=== PATIENT | female | born 1985 | race Caucasian/White ===

== ENCOUNTER 2016-10-23 15:24 | Emergency (ER) | payer SELFPAY ==
[2016-10-23 15:49] VITALS: BP 110/66
--- NOTE | 2016-10-23 16:09 | UC ---
Respiratory Complaint HPI - HPI Summary HPI Summary: The patient comes in today for: 1. Cough, rhinitis, headache, chest congestion, body aches, lower back pain: Onset: one month ago. Started as a runny nose a month ago and it would come and go. Most of her symptoms re-started last night. Palliative/provocative: Nothing makes her symptoms better or worse. Quality: Headache: ache, lower back pain: ache. Region: Frontal headache, and lower back. Severity: 6/10 Time: Constant. Associated symptoms: Primary care provider: None. Rhinitis: green/yellow: Upper tooth pain: None. Fevers: No temperature taken. Flu vaccine: NOne. Flu/strep exposure: Unknown. She works at "[employer]" Cough: sometimes productive; Green and yellow Smoker: Present. Chest pain: None Dyspnea: NOne * - History of Current Complaint Chief Complaint: UCRespiratory Stated Complaint: URI Time Seen by Provider: 10/23/16 15:57 Hx Obtained From: Patient Hx Last Menstrual Period: 10/09/16 ?: No - Allergies/Home Medications Allergies/Adverse Reactions: Allergies Allergy/AdvReac Type Severity Reaction Status Date / Time Cefaclor [From Ceclor] Allergy Unknown UNK Verified 09/13/15 12:12 Penicillins Allergy Unknown UNK Verified 09/13/15 12:12 Sulfamethoxazole Allergy Unknown UNK Verified 09/13/15 12:12 w/Trimethoprim [From Bactrim] PMH/Surg Hx/FS Hx/Imm Hx Previously Healthy: Yes Endocrine History Of: Denies: Diabetes, Thyroid Disease, Hyperthyroidism, Hypothyroidism, Dyslipidemia Cardiovascular History Of: Denies: Cardiac Disorders, Hypertension, Pacemaker/ICD, Myocardial Infarction , Congestive Heart Failure, Atrial Fibrillation, Deep Vein Thrombosis, Bleeding Disorders Respiratory History Of: Denies: COPD, Asthma, Bronchitis, Pneumonia, Pulmonary Embolism GI/ History Of: Denies: Gastroesophageal Reflux, Ulcer, Gastrointestinal Bleed, Gall Bladder Disease, Kidney Stones, Diverticulitis, Renal Disease, Urosepsis Neurological History Of: Denies: TIA, CVA, Dementia, Seizures, Migraine Psychological History Of: Denies: Anxiety, Depression, Bipolar Disorder, Schizophrenia, Post Traumatic Stress Disorder Cancer History Of: Denies: Lung Cancer, Colorectal Cancer, Breast Cancer, Prostate Cancer, Cervical Cancer Other History Of: Negative For: HIV, Hepatitis B, Hepatitis C, Anticoagulant Therapy - Surgical History Surgical History: Yes Surgery Procedure, Year, and Place: csection 2004. ear tubes - Family History Known Family History: Negative: Cardiac Disease, Hypertension - Social History Occupation: Employed Full-time Alcohol Use: Rare Substance Use Type: None Smoking Status (MU): Current Every Day Smoker Type: Cigarettes Amount Used/How Often: 1/2 PPD Length of Time of Smoking/Using Tobacco: 10 years Have You Smoked in the Last Year: Yes Review of Systems Constitutional: Negative Skin: Negative Eyes: Negative ENT: Nasal Discharge Respiratory: Cough Cardiovascular: Negative Gastrointestinal: Negative Genitourinary: Negative All Other Systems Reviewed And Are Negative: Yes Physical Exam Triage Information Reviewed: Yes Appearance: No Pain Distress, Well-Nourished, Ill-Appearing - She has decreased psychomotor slowing and decreased facial expressions. Vital Signs: Initial Vital Signs Temp 98.9 F 10/23/16 15:46 Pulse 104 10/23/16 15:46 Resp 16 10/23/16 15:46 BP 110/66 10/23/16 15:46 Pulse Ox 96 10/23/16 15:46 Vital Signs Reviewed: Yes Eyes: Positive: Conjunctiva Clear. Negative: Discharge ENT: Positive: Nasal congestion, Other: - She has pink and moist mucous membranes.. Negative: Pharyngeal erythema, Nasal drainage, TM bulging, TM dull , TM red, Tonsillar swelling, Tonsillar exudate Dental: Negative: Gross Decay/Caries @, Dental Fracture @ Neck: Positive: Supple, Nontender, No Lymphadenopathy. Negative: Nuchal Rigidity Respiratory: Positive: Chest non-tender, Lungs clear, No respiratory distress, No accessory muscle use. Negative: Crackles, Wheezing Cardiovascular: Positive: RRR, No Murmur Abdomen Description: Positive: Nontender, No Organomegaly, Soft. Negative: Distended, Guarding Musculoskeletal: Positive: Strength Intact, ROM Intact Neurological: Positive: Alert, Muscle Tone Normal Psychological: Positive: Age Appropriate Behavior, Consolable Skin: Negative: rashes, breakdown UC Diagnostic Evaluation - Laboratory O2 Sat by Pulse Oximetry: 96 Diagnostic Studies Comment: Rapid flu: (-) by nursing report. Respiratory Course/Dx - Course Course Of Treatment: Patient was told of the negative flu test, and that she probably has some virus as well as a sinusitis/bronchitis. - Differential Dx/Diagnosis Provider Diagnoses: Viral syndrome. Sinusitis. Bronchitis Discharge - Discharge Plan Condition: Stable Disposition: HOME Patient Education Materials: Sinusitis (ED), Acute Bronchitis (ED), Viral Syndrome (ED) Referrals: No Primary Care Phys,NOPCP [Primary Care Provider] - 1 Week (Please see your primary care provider in about three days to see how well you are doing. If you don't have a primary care provider, please contact the physician referral service. If you can't get in timely, please you may come back to see us until you can. If you get worse, please be seen sooner by us or the ER.) [facility] [place] PHYSICIAN REFERRAL [Outside] ()
[2016-10-23] MEDS ORDERED: Acetaminophen TAB* 325 MG PO ONE (16:15)
== END 2016-10-23 17:10 | disposition home or self-care (01) ==
LOC: UCEAST 15:24
DX: B34.9 Viral infection, unspecified (principal); J32.9 Chronic sinusitis, unspecified; J40 Bronchitis, not specified as acute or chronic; Z88.1 Allergy status to other antibiotic agents; Z88.0 Allergy status to penicillin; Z88.2 Allergy status to sulfonamides; F17.210 Nicotine dependence, cigarettes, uncomplicated
CPT/HCPCS: 87502; 99212; A9270-GY; G0463

== ENCOUNTER 2016-11-04 14:12 | Emergency (ER) | payer SELFPAY ==
[2016-11-04 15:21] VITALS: BP 100/60
--- NOTE | 2016-11-04 17:33 | UC ---
Throat Pain/Nasal Edwin HPI - HPI Summary HPI Summary: SEEN ONE WEEK AGO FOR SINUSITIS BRONCHITIS, GIVEN DOXYCYCLINE, ALMOST DONE WITH IT. SINUS PRESSURE AND CONGESTION CONTINUE, WELL FATIGUE AND FEVER. 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 Hx Last Menstrual Period: 3 WEEKS AGO Onset/Duration: Gradual Onset, Lasting Weeks, Still Present Severity: Moderate Pain Intensity: 0 Pain Scale Used: 0-10 Numeric Cough: Nonproductive Associated Signs & Symptoms: Positive: Sinus Discomfort, Nasal Discharge, Fever - Epiglottits Risk Factors Epiglottis Risk Factors: Negative - Allergies/Home Medications Allergies/Adverse Reactions: Allergies Allergy/AdvReac Type Severity Reaction Status Date / Time Cefaclor [From Ceclor] Allergy Unknown UNK Verified 11/04/16 15:21 Penicillins Allergy Unknown UNK Verified 11/04/16 15:21 Sulfamethoxazole Allergy Unknown UNK Verified 11/04/16 15:21 w/Trimethoprim [From Bactrim] Home Medications: Home Medications Norethindrone Acet & Eth Estra [Microgestin 1.5/30 1.5-30 mg-Mcg] 1 tab PO DAILY 11/04/16 [History Confirmed 11/04/16] PMH/Surg Hx/FS Hx/Imm Hx Previously Healthy: Yes Endocrine History Of: Denies: Diabetes, Thyroid Disease, Hyperthyroidism, Hypothyroidism, Dyslipidemia Cardiovascular History Of: Denies: Cardiac Disorders, Hypertension, Pacemaker/ICD, Myocardial Infarction , Congestive Heart Failure, Atrial Fibrillation, Deep Vein Thrombosis, Bleeding Disorders Respiratory History Of: Denies: COPD, Asthma, Bronchitis, Pneumonia, Pulmonary Embolism GI/ History Of: Denies: Gastroesophageal Reflux, Ulcer, Gastrointestinal Bleed, Gall Bladder Disease, Kidney Stones, Diverticulitis, Renal Disease, Urosepsis Neurological History Of: Denies: TIA, CVA, Dementia, Seizures, Migraine Psychological History Of: Denies: Anxiety, Depression, Bipolar Disorder, Schizophrenia, Post Traumatic Stress Disorder Cancer History Of: Denies: Lung Cancer, Colorectal Cancer, Breast Cancer, Prostate Cancer, Cervical Cancer Other History Of: Negative For: HIV, Hepatitis B, Hepatitis C, Anticoagulant Therapy - Surgical History Surgical History: Yes Surgery Procedure, Year, and Place: csection 2004. ear tubes - Family History Known Family History: Positive: Unknown - asopted Negative: Cardiac Disease, Hypertension - Social History Alcohol Use: Rare Substance Use Type: None Smoking Status (MU): Current Every Day Smoker Type: Cigarettes Amount Used/How Often: 1/4 PPD Length of Time of Smoking/Using Tobacco: 10 years Have You Smoked in the Last Year: Yes Review of Systems Constitutional: Negative Skin: Negative Eyes: Negative ENT: Ear Ache, Nasal Discharge Respiratory: Cough Cardiovascular: Negative Gastrointestinal: Negative Genitourinary: Negative Motor: Negative Neurovascular: Negative Musculoskeletal: Negative Neurological: Negative Psychological: Negative All Other Systems Reviewed And Are Negative: Yes Physical Exam Triage Information Reviewed: Yes Appearance: No Pain Distress, Well-Nourished, Ill-Appearing - MILD Vital Signs: Initial Vital Signs Temp 98.4 F 11/04/16 15:18 Pulse 82 11/04/16 15:18 Resp 16 11/04/16 15:18 BP 100/60 11/04/16 15:18 Pulse Ox 100 11/04/16 15:18 Vital Signs Reviewed: Yes Eye Exam: Normal ENT: Positive: Hearing grossly normal, Pharynx normal, TM bulging, TM dull Dental Exam: Normal Neck exam: Normal Respiratory Exam: Normal Respiratory: Positive: Chest non-tender, Lungs clear, Normal breath sounds, No respiratory distress, No accessory muscle use Cardiovascular Exam: Normal Cardiovascular: Positive: RRR, No Murmur, Pulses Normal, Brisk Capillary Refill Abdominal Exam: Normal Musculoskeletal Exam: Normal Neurological Exam: Normal Psychological Exam: Normal Skin Exam: Normal Throat Pain/Nasal Course/Dx - Differential Dx/Diagnosis Differential Diagnosis/HQI/PQRI: Pharyngitis, Sinusitis, Tonsillitis, URI Provider Diagnoses: SINUSITIS Discharge - Discharge Plan Condition: Stable Disposition: HOME Prescriptions: Azithromycin TAB* [Zithromax TAB (Z-JUANJO) 250 mg #6 tabs] 250 mg PO DAILY #6 tab Fluticasone NASAL SPRAY 50MCG* [Flonase NASAL SPRAY 50MCG*] 2 spray BOTH NARES DAILY #1 btl Patient Education Materials: Sinusitis (ED) Forms: *Work Release Referrals: [facility] [place] PHYSICIAN REFERRAL [Outside] No Primary Care Phys,NOPCP [Primary Care Provider] -
== END 2016-11-04 17:25 | disposition home or self-care (01) ==
LOC: UCEAST 14:12
DX: J32.9 Chronic sinusitis, unspecified (principal); Z88.1 Allergy status to other antibiotic agents; Z88.0 Allergy status to penicillin; Z88.2 Allergy status to sulfonamides; F17.210 Nicotine dependence, cigarettes, uncomplicated
CPT/HCPCS: 99212; G0463

== ENCOUNTER 2016-11-12 15:06 | Emergency (ER) | payer SELFPAY ==
[2016-11-12 15:46] VITALS: BP 104/56
--- NOTE | 2016-11-12 19:05 | UC ---
Cardiac HPI - HPI Summary HPI Summary: The patient comes in today for: 1. Chest pain: Onset: 3 weeks ago. Palliative/provocative: Steam helps the chest pain. Taking "huge breaths" sometimes makes it hurt more. But, she states that certain foods makes this retrosternal chest burning worse. Quality: Burning. Region: Retrosternal Severity: 3/10 Time: Comes and goes. Associated symptoms: Fevers: None. Cough production: "Sometimes" yellow--not green. Sinus pressure: Maxillary Flonase: Helps. PCP: None. The patient was seen by me on 10-23-16 for symptoms of cough, rhinitis, headache, chest congestion, body aches and lower back pain. She states that all her symptoms are still present, except the body aches. She states that she mainly comes in to get a work note to go back to work. I cannot easily find any work notes on [employer], and I can't easily find any note by Mr. Lopez to review regarding this patient. * - History of Current Complaint Chief Complaint: UCRespiratory Stated Complaint: RECHECK BRONCH,SINUSITIS,& HAND Time Seen by Provider: 11/12/16 18:57 Hx Obtained From: Patient - Allergy/Home Medications Allergies/Adverse Reactions: Allergies Allergy/AdvReac Type Severity Reaction Status Date / Time Cefaclor [From Ceclor] Allergy Unknown UNK Verified 11/12/16 15:47 Penicillins Allergy Unknown UNK Verified 11/12/16 15:47 Sulfamethoxazole Allergy Unknown UNK Verified 11/12/16 15:47 w/Trimethoprim [From Bactrim] PMH/Surg Hx/FS Hx/Imm Hx Previously Healthy: Yes Endocrine History Of: Denies: Diabetes, Thyroid Disease, Hyperthyroidism, Hypothyroidism, Dyslipidemia Cardiovascular History Of: Denies: Cardiac Disorders, Hypertension, Pacemaker/ICD, Myocardial Infarction , Congestive Heart Failure, Atrial Fibrillation, Deep Vein Thrombosis, Bleeding Disorders Respiratory History Of: Denies: COPD, Asthma, Bronchitis, Pneumonia, Pulmonary Embolism GI/ History Of: Denies: Gastroesophageal Reflux, Ulcer, Gastrointestinal Bleed, Gall Bladder Disease, Kidney Stones, Diverticulitis, Renal Disease, Urosepsis Neurological History Of: Denies: TIA, CVA, Dementia, Seizures, Migraine Psychological History Of: Denies: Anxiety, Depression, Bipolar Disorder, Schizophrenia, Post Traumatic Stress Disorder Cancer History Of: Denies: Lung Cancer, Colorectal Cancer, Breast Cancer, Prostate Cancer, Cervical Cancer Other History Of: Negative For: HIV, Hepatitis B, Hepatitis C, Anticoagulant Therapy - Surgical History Surgical History: Yes Surgery Procedure, Year, and Place: csection 2004. ear tubes - Family History Known Family History: Negative: Cardiac Disease, Hypertension - Social History Occupation: Employed Full-time Lives: With Family Alcohol Use: Rare Substance Use Type: None Smoking Status (MU): Current Every Day Smoker Type: Cigarettes Amount Used/How Often: 1/4 PPD Length of Time of Smoking/Using Tobacco: 10 years Have You Smoked in the Last Year: Yes Review of Systems Constitutional: Negative Skin: Negative Eyes: Negative ENT: Negative Respiratory: Cough Cardiovascular: Chest Pain Gastrointestinal: Negative All Other Systems Reviewed And Are Negative: Yes Physical Exam Triage Information Reviewed: Yes Appearance: Well-Appearing, No Pain Distress, Well-Nourished Vital Signs: Initial Vital Signs Temp 98.6 F 11/12/16 15:41 Pulse 78 11/12/16 15:41 Resp 18 11/12/16 15:41 BP 104/56 11/12/16 15:41 Pulse Ox 100 11/12/16 15:41 Vital Signs Reviewed: Yes Eyes: Positive: Conjunctiva Clear. Negative: Discharge ENT: Positive: Hearing grossly normal. Negative: Pharyngeal erythema, Nasal congestion, Nasal drainage, TM bulging, TM dull, TM red, Tonsillar swelling, Tonsillar exudate Dental: Negative: Gross Decay/Caries @, Dental Fracture @ Neck: Positive: Supple, Nontender, No Lymphadenopathy. Negative: Nuchal Rigidity Respiratory: Positive: Lungs clear, No respiratory distress, No accessory muscle use. Negative: Crackles, Wheezing Cardiovascular: Positive: RRR, No Murmur Abdomen Description: Positive: Nontender, No Organomegaly, Soft. Negative: Distended, Guarding Musculoskeletal: Positive: Strength Intact, ROM Intact, No Edema Neurological: Positive: Alert, Muscle Tone Normal Psychological: Positive: Age Appropriate Behavior, Consolable Skin: Negative: rashes, breakdown - Assessment/Plan Course Of Treatment: Patient was told of her diagnostic and treatment options. 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 - Clinical Impression Provider Diagnoses: Upper respiratory infection. GERD/chest pain Discharge - Discharge Plan Condition: Stable Disposition: HOME Patient Education Materials: Gastroesophageal Reflux Disease (ED), Upper Respiratory Infection (ED) Forms: *Work Release Referrals: [facility] PHYSICIAN REFERRAL [Outside] No Primary Care Phys,NOPCP [Primary Care Provider] - 1 Week (Please see your primary care provider in about three days to see how well you are doing. If you don't have a primary care provider, please contact the physician referral service. If you can't get in timely, please you may come back to see us until you can. If you get worse, please be seen sooner by us or the ER.)
== END 2016-11-12 19:43 | disposition home or self-care (01) ==
LOC: UCEAST 15:06
DX: J06.9 Acute upper respiratory infection, unspecified (principal); K21.9 Gastro-esophageal reflux disease without esophagitis; R07.9 Chest pain, unspecified; F17.210 Nicotine dependence, cigarettes, uncomplicated; Z88.0 Allergy status to penicillin; Z88.2 Allergy status to sulfonamides
CPT/HCPCS: 99212; G0463

== ENCOUNTER 2017-04-09 19:59 | Emergency (ER) | payer SELFPAY ==
[2017-04-09] MEDS ORDERED: Ondansetron INJ* 2 MG/ML VIAL IV ONE ×2 (20:05→22:11)
[2017-04-09] MEDS ORDERED: Morphine INJ* 2 MG/ML 1 ML SYRINGE IV ONE ×2 (20:05→20:42)
[2017-04-09] MEDS ORDERED: NS 0.9% 1000 ML* 1,000 ML IV ONE ×2 (20:05→22:03)
[2017-04-09 20:17] LABS: Hematocrit 44 % (35-47); Hemoglobin 14.8 g/dl (12.0-16.0); Mean Corpuscular HGB Conc 33 g/dl (31-36); Mean Corpuscular Hemoglobin 31 pg (27-31); Mean Corpuscular Volume 93 fL (80-97); Mean Platelet Volume 9 um3 (7.4-10.4); Red Blood Count 4.76 10^6/ul (4.0-5.4); Red Cell Distribution Width 13 % (10.5-15); White Blood Count 12.1 10^3/ul (3.5-10.8)
[2017-04-09 20:33] LABS: ALT 13 U/L (7-52); AST 17 U/L (13-39); Alkaline Phosphatase 55 U/L (34-104); Anion Gap 6 mmol/L (2-11); BUN/Creatinine Ratio 9.2 (8-20); Blood Urea Nitrogen 10 mg/dL (6-24); C Reactive Protein 2.94 mg/L (< 5.00); CO2 Carbon Dioxide 24 mmol/L (22-32); Calcium 9.1 mg/dL (8.6-10.3); Chloride 106 mmol/L (101-111); EGFR African American 75.8 (>60); EGFR Non-African American 58.9 (>60); Glucose 102 mg/dL (70-100); Lipase 22 U/L (11.0-82.0); Potassium 3.3 mmol/L (3.5-5.0); Sodium 136 mmol/L (133-145)
--- NOTE | 2017-04-09 20:38 | ED ---
Angela Huitron Edward, scribed for Pb Hensley MD on 04/09/17 at 2003 . Abdominal Pain/Female - HPI Summary HPI Summary: 31 y/o female BIBA c/o pain in the epigastric region for the past 24 hours. The pain started at 21:23 last night and the pain has gotten progressively worse. Associated sx: nausea. Patient thinks the pain is coming from the gallbladder. Patient is currently on her period. - History of Current Complaint Stated Complaint: ABD PAIN Hx Obtained From: Patient Hx Last Menstrual Period: now Onset/Duration: Sudden Onset, Lasting Days - 21:23 last night, Still Present Timing: Constant Severity Initially: Moderate Severity Currently: Severe Location: Epigastric Associated Signs and Symptoms: Positive: Nausea Allergies/Adverse Reactions: Allergies Allergy/AdvReac Type Severity Reaction Status Date / Time Cefaclor [From Ceclor] Allergy Unknown UNK Verified 11/12/16 15:47 Penicillins Allergy Unknown UNK Verified 11/12/16 15:47 Sulfamethoxazole Allergy Unknown UNK Verified 11/12/16 15:47 w/Trimethoprim [From Bactrim] PMH/Surg Hx/FS Hx/Imm Hx Previously Healthy: No Endocrine/Hematology History: Denies: Hx Anticoagulant Therapy, Hx Diabetes, Hx Thyroid Disease Cardiovascular History: Denies: Hx Congestive Heart Failure, Hx Deep Vein Thrombosis, Hx Hypertension , Hx Myocardial Infarction, Hx Pacemaker/ICD Respiratory History: Denies: Hx Asthma, Hx Chronic Obstructive Pulmonary Disease (COPD), Hx Lung Cancer, Hx Pneumonia, Hx Pulmonary Embolism GI History: Denies: Hx Gall Bladder Disease, Hx Gastrointestinal Bleed, Hx Ulcer, Hx Urosepsis History: Denies: Hx Kidney Stones, Hx Renal Disease Neurological History: Denies: Hx Dementia, Hx Migraine, Hx Seizures, Hx Transient Ischemic Attacks (TIA) Psychiatric History: Denies: Hx Anxiety, Hx Depression, Hx Schizophrenia, Hx Bipolar Disorder - Surgical History Surgery Procedure, Year, and Place: csection 2004. 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 Lives: With Family Alcohol Use: Rare Substance Use Type: Reports: None Smoking Status (MU): Current Every Day Smoker Type: Cigarettes Amount Used/How Often: 1/4 PPD Length of Time of Smoking/Using Tobacco: 10 years Have You Smoked in the Last Year: Yes Review of Systems Constitutional: Negative Eyes: Negative ENT: Negative Cardiovascular: Negative Respiratory: Negative Positive: Abdominal Pain, Nausea Genitourinary: Negative Musculoskeletal: Negative Skin: Negative Neurological: Negative Psychological: Normal All Other Systems Reviewed And Are Negative: Yes Physical Exam Triage Information Reviewed: Yes Vital Signs On Initial Exam: Initial Vitals Resp 22 04/09/17 20:15 Vital Signs Reviewed: Yes Appearance: Positive: Well-Appearing, Pain Distress - mild discomfort Skin: Positive: Warm Head/Face: Positive: Normal Head/Face Inspection Eyes: Positive: JESSICA ENT: Positive: Hearing grossly normal Neck: Positive: Supple Respiratory/Lung Sounds: Positive: Breath Sounds Present Cardiovascular: Positive: RRR Abdomen Description: Positive: Soft, Other: - mild diffuse upper abd tenderness. Negative: Guarding Bowel Sounds: Positive: Present Musculoskeletal: Positive: Strength/ROM Intact Neurological: Positive: Alert, Oriented to Person Place, Time Psychiatric: Positive: Affect/Mood Appropriate Diagnostics - Vital Signs Vital Signs Temp Pulse Resp BP Pulse Ox 04/09/17 20:20 98.2 F 67 22 97/67 100 04/09/17 20:15 22 - Laboratory Lab Results: Lab Results 04/09/17 04/09/17 04/09/17 Range/Units 20:10 20:10 20:10 WBC 12.1 H (3.5-10.8) 10^3/ul RBC 4.76 (4.0-5.4) 10^6/ul Hgb 14.8 (12.0-16.0) g/dl Hct 44 (35-47) % MCV 93 (80-97) fL MCH 31 (27-31) pg MCHC 33 (31-36) g/dl RDW 13 (10.5-15) % Plt Count 284 (150-450) 10^3/ul MPV 9 (7.4-10.4) um3 Neut % (Auto) 70.8 (38-83) % Lymph % (Auto) 20.5 L (25-47) % [place] % (Auto) 5.1 (1-9) % Eos % (Auto) 3.0 (0-6) % Baso % (Auto) 0.6 (0-2) % Absolute Neuts (auto) 8.5 H (1.5-7.7) 10^3/ul Absolute Lymphs (auto) 2.5 (1.0-4.8) 10^3/ul Absolute Monos (auto) 0.6 (0-0.8) 10^3/ul Absolute Eos (auto) 0.4 (0-0.6) 10^3/ul Absolute Basos (auto) 0.1 (0-0.2) 10^3/ul Absolute Nucleated RBC 0.01 10^3/ul Nucleated RBC % 0.1 Sodium 136 (133-145) mmol/L Potassium 3.3 L (3.5-5.0) mmol/L Chloride 106 (101-111) mmol/L Carbon Dioxide 24 (22-32) mmol/L Anion Gap 6 (2-11) mmol/L BUN 10 (6-24) mg/dL Creatinine 1.09 H (0.51-0.95) mg/dL Est GFR ( Amer) 75.8 (>60) Est GFR (Non-Af Amer) 58.9 (>60) BUN/Creatinine Ratio 9.2 (8-20) Glucose 102 H (70-100) mg/dL Lactic Acid 1.2 (0.5-2.0) mmol/L Calcium 9.1 (8.6-10.3) mg/dL Magnesium 2.0 (1.9-2.7) mg/dL Total Bilirubin 0.70 (0.2-1.0) mg/dL AST 17 (13-39) U/L ALT 13 (7-52) U/L Alkaline Phosphatase 55 (34-104) U/L C-Reactive Protein 2.94 (< 5.00) mg/L Total Protein 7.0 (6.4-8.9) g/dL Albumin 4.0 (3.2-5.2) g/dL Globulin 3.0 (2-4) g/dL Albumin/Globulin Ratio 1.3 (1-3) Lipase 22 (11.0-82.0) U/L Beta HCG, Quant Pending Result Diagrams: 04/09/17 20:10 04/09/17 20:10 Lab Statement: Any lab studies that have been ordered have been reviewed, and results considered in the medical decision making process. - CT ABD/PEL CT CT Interpretation: Positive (See Comments) - Possible cholecystitis due to a 2 cm gallbladder neck stone can be further evaluated with ultrasound. CT Interpretation Completed By: Radiologist - Ultrasound No standard instances Ultrasound Interpretation: No Acute Changes - Normal appearance of the liver. Small amount of sludge in the gall bladder which is otherwise unremarkable. CBD within normal limits. Normal apperance of the right kidney and pancreas. Ultrasound Interpretation Completed By: Radiologist Re-Evaluation - Re-Evaluation 1 Re-Evaluation Time: 00:57 Change: Improved - results d/w pt Abdominal Pain Fem Course/Dx - Course Course Of Treatment: 31 y/o female BIBA c/o upper region ABD for the past 24 hours. The pain started at 21:23 last night and the pain has gotten progressively worse. Associated sx: nausea. ABD/PEL CT shows Possible cholecystitis due to a 2 cm gallbladder neck stone can be further evaluated with ultrasound. ABD US negative for acute pathology. Pt was reevaluated at 00: 57. - Diagnoses Provider Diagnoses: Biliary colic Discharge - Discharge Plan Condition: Improved Disposition: HOME Patient Education Materials: Biliary Colic (ED), Diet for Stomach Ulcers and Gastritis (ED) Referrals: Vicente Gonzalez MD [Medical Doctor] - 3 Days (Please f/u in 2-3 days) The documentation as recorded by the Angela rock Edward accurately reflects the service I personally performed and the decisions made by , Pb Hensley MD.
[2017-04-09] MEDS ORDERED: Iodixanol* (CONTRAST) 320 MG/ML 100 ML SDV IV ONE (21:09)
[2017-04-09] MEDS ORDERED: Lidocaine 2% VISCOUS* 15 ML UDC PO ONE (22:03)
[2017-04-09] MEDS ORDERED: Al Hydrox/Mg Hydrox/Simet LIQ* 30 ML UDC PO ONE (22:03)
[2017-04-09] MEDS ORDERED: Ondansetron INJ* 2 MG/ML VIAL ONE (22:13)
[2017-04-09] MEDS ORDERED: HYDROmorphone* 1 MG/ML 1 ML SYR IV SLOW PU ONE (23:30)
[2017-04-10] MEDS ORDERED: oxyCODONE/Acetamin 5/325 MG* TAB PO ONE (00:56)
[2017-04-10 01:11] VITALS: BP 106/63
--- NOTE | 2017-04-10 07:47 | RAD ---
INDICATION: Abdominal pain. COMPARISON: Comparison is made with a prior CT of the abdomen and pelvis from January 16, 2008. TECHNIQUE: A CT scan of the abdomen and pelvis was performed with intravenous and oral contrast following intravenous injection of 82 ml of Visipaque 320 nonionic contrast. Contiguous axial sections were obtained from the lung bases through the symphysis pubis. Images were reconstructed in the coronal and sagittal planes. FINDINGS: The lung bases are clear. No pleural effusion is present. The liver and spleen are normal in size. There is increased density in the liver adjacent to the gallbladder possibly representing increased enhancement. The gallbladder appears distended. There is increased density within the gallbladder suspicious for gallstones. No pericholecystic fluid is seen. No intra or extrahepatic ductal distention is noted. The pancreas appears to be within normal limits. The kidneys and adrenal glands are normal in size. No hydronephrosis is seen. No significant focal renal abnormality is seen. The aorta is normal in caliber and demonstrates homogeneous contrast opacification. No significant enlarged retroperitoneal lymph nodes are seen. The stomach, small and large bowel appear nondistended. The appendix is within normal limits. There is mild sigmoid diverticulosis. There is no evidence for diverticulitis or colitis. There is a small periumbilical hernia containing fat. The uterus is anteverted and normal in size. No free intraperitoneal air or fluid is seen. No significant focal osseous abnormality is seen. IMPRESSION: DISTENDED GALLBLADDER WITH POSSIBLE GALLSTONES SUGGESTING THE POSSIBILITY OF ACUTE CHOLECYSTITIS. RECOMMEND CLINICAL CORRELATION AND A RIGHT UPPER QUADRANT ULTRASOUND FOR FURTHER EVALUATION.
--- NOTE | 2017-04-10 07:54 | RAD ---
HISTORY: Right upper quadrant pain COMPARISONS: CT dated April 09, 2017 TECHNIQUE: Multiple transverse and longitudinal ultrasound images were obtained of the right upper quadrant of the abdomen using grayscale and color Doppler imaging. FINDINGS: LIVER: The liver is normal in shape, size, contour, and echogenicity. There are no focal parenchymal masses. There is normal hepatopedal flow of the portal vein on Doppler imaging. BILIARY TREE: There is mild intrahepatic biliary dilatation. The common duct measures 0.5 cm. GALLBLADDER: There is a wall echo shadow complex within the gallbladder neck corresponding to the stone noted on CT. A positive sonographic Gomes sign is reported. PANCREAS: The head of the pancreas is unremarkable. The tail of the pancreas is not well visualized secondary to overlying bowel gas. RIGHT KIDNEY: The right kidney is normal in shape, size, contour, and echogenicity. There is no hydronephrosis or nephrolithiasis. The right kidney measures 11.2 x 3.3 x 4 cm. AORTA AND IVC: The aorta and IVC are unremarkable. FLUID: There are no pleural effusions. There is no free fluid within the hepatorenal recess. OTHER FINDINGS: None. IMPRESSION: 1. THERE IS A WALL ECHO SHADOW CONTRAST WITHIN THE GALLBLADDER NECK CORRESPOND TO THE STONE NOTED ON CT. ADDITIONALLY, THE TECHNOLOGIST REPORTS A SONOGRAPHIC GOMES SIGN. THIS IS INDETERMINATE BUT CONCERNING FOR ACUTE CHOLECYSTITIS IN THE CORRECT CLINICAL SETTING. 2. MILD INTRAHEPATIC BILIARY DILATATION. 3. THESE FINDINGS WERE DISCUSSED WITH DR. MARK IN THE EMERGENCY DEPARTMENT AT APPROXIMATELY 7:50 AM ON APRIL 10, 2017
--- NOTE | 2017-04-10 09:28 | CONSULT ---
Consult Consult: I was called by Dr. Bui in the morning. Ms. Jung had presented with epigastric pain, found to have a mild leukocytosis and normal transaminases, and had a CT that showed a stone in the neck of the gallbladder. An U/S was recommended and obtained. It was read as negative. The reading this AM was that there was a stone in the gallbladder neck and a positive sonographic pelayo 's sign consistent with acute cholecystitis. Dr. Gonzalez was consulted, we arranged to have her seen in the office today and she was started on Cipro.
== END 2017-04-10 01:12 | disposition home or self-care (01) ==
LOC: ED 19:59
DX: K80.50 Calculus of bile duct without cholangitis or cholecystitis without obstruction (principal); R10.9 Unspecified abdominal pain; R11.0 Nausea; F17.210 Nicotine dependence, cigarettes, uncomplicated
CPT/HCPCS: 36415; 74177; 76705; 80053; 83605; 83690; 83735; 84702; 85025; 86140; 96374; 96375; 99285; A9270-GY; J1170; J2270; J2405; Q9967

== ENCOUNTER 2017-04-12 11:22 | Day surgery (SDC) | payer SELFPAY ==
[~2017-04-12 11:22] MED LIST: Buffered Lidocaine 0.9% SYRIN* 5 ML/SYR SYRINGE INTRADERM ONE; Famotidine IV* 10 MG/ML 2 ML (20 mg) IV ONE
[2017-04-12 11:32] LABS: UR Preg Internal Control QC Line Present
[2017-04-12] MEDS ORDERED: Levofloxacin 750 MG IVPREMIX(* 750 MG/150 ML BAG ONE (11:32)
[2017-04-12] MEDS ORDERED: Ketorolac INJ* 30 MG/ML 1 ML VIAL ONE (11:32)
[2017-04-12] MEDS ORDERED: Famotidine IV* 10 MG/ML 2 ML (20 mg) ONE (11:32)
[2017-04-12] MEDS ORDERED: Buffered Lidocaine 0.9% SYRIN* 5 ML/SYR SYRINGE ONE (11:32)
[2017-04-12] MEDS ORDERED: Midazolam* 1 MG/ML 5 ML VIAL (5 MG) ONE (13:04)
[2017-04-12] MEDS ORDERED: Propofol* 10 MG/ML 20 ML BTL IV PUSH ONE (13:05)
[2017-04-12] MEDS ORDERED: Ondansetron INJ* 2 MG/ML VIAL ONE (13:05)
[2017-04-12] MEDS ORDERED: Lidocaine 2% PF * 5 ML VIAL ONE (13:05)
[2017-04-12] MEDS ORDERED: Succinylcholine* 20 MG/ML 10 ML VIAL ONE (13:05)
[2017-04-12] MEDS ORDERED: fentaNYL* 50 MCG/ML 2 ML VIAL (100 MCG VIAL) ONE ×2 (13:05→14:56)
[2017-04-12] MEDS ORDERED: Dexamethasone IV* 4 MG/ML 1 ML (4 MG) ONE (13:05)
[2017-04-12] MEDS ORDERED: Bupivacaine 0.25% W/EPI* 50 ML VIAL ONE (14:13)
[2017-04-12] MEDS ORDERED: Rocuronium* 10 MG/ML VIAL ONE (15:01)
[2017-04-12] MEDS ORDERED: HYDROmorphone* 1 MG/ML 1 ML SYR ONE ×2 (15:13→16:23)
[2017-04-12] MEDS ORDERED: DiMENhydriNATE IV* 50 MG/ML VIAL IV PUSH PRN (15:14)
[2017-04-12] MEDS ORDERED: oxyCODONE/Acetamin 5/325 MG* TAB PO PRN (15:14)
--- NOTE | 2017-04-12 15:41 | PN ---
Progress Note - Progress Note Date of Service: 04/12/17 Note: Brief Operative Note: Preop Dx: symptomatic cholelithiasis Postop Dx: same, plus subacute cholecystitis Procedure: laparascopic cholecystectomy Anesthesia: GET Surgeon: Tonja Asst: BINTA Foster Fluids: 1800 ml RL EBL: 30 ml Drains: none Specimen: gallbladder Findings: dictated
[2017-04-12] MEDS ORDERED: DiMENhydriNATE IV* 50 MG/ML VIAL ONE (16:00)
[2017-04-12] MEDS: HYDROmorphone* 1 MG/ML 1 ML SYR IV PRN ×2 (16:25→16:58)
[2017-04-12] MEDS ORDERED: oxyCODONE/Acetamin 5/325 MG* TAB ONE (16:54)
[2017-04-12 17:19] VITALS: BP 105/54
--- NOTE | 2017-04-13 16:21 | OP ---
CC: Dr. Evangelista OPERATIVE REPORT: DATE OF OPERATION: 04/12/17 DATE OF : 87 SURGEON: Pb Evangelista MD CHILD CARE SITTER: BINTA Demarco ANESTHESIOLOGIST: Dr. Phillips. ANESTHESIA: General anesthetic, local infiltration. PRE-OP DIAGNOSIS: [id number] cholecystitis. POST-OP DIAGNOSIS: [id number]-[id number] cholecystitis. OPERATIVE PROCEDURE: Laparoscopic cholecystectomy. DESCRIPTION OF PROCEDURE: The patient was supine on the operating room table. After adequate genera l anesthetic, compression stockings, Kyaw Hugger warmer, and intravenous antibiotics, the abdomen wa s prepped with antiseptic and draped in a sterile fashion. Local infiltrative anesthesia was admini stered. A small umbilical incision was created. Blunt port cannula was placed. Insufflation was c arried out with carbon dioxide. Additional cannulae, 12 mm subxiphoid, 5 mm in right upper quadrant and right anterior axillary line were placed with small stab wounds under direct vision. The gallb ladder was distended and edematous. The areolar tissue was taken down off the neck of the gallbladd er. The cystic duct and cystic artery were readily identified. This was well away from the common duct. The duct and the artery were doubly clipped and divided and the gallbladder was taken off the liver bed using electrocautery. There was no spillage. The gallbladder was removed through the sub xiphoid port which needed to be enlarged somewhat for that purpose. The operative field was well ir rigated with warm saline solution. Free fluid was suctioned out. Hemostasis was confirmed. The ca nnulae were removed. The muscle and the 2 larger incisions were closed with 0 Polysorb, followed by 5-0 Polysorb in all cases followed by Steri-Strips. She tolerated the procedure well, was awakened , and brought to Recovery in good condition. No complications. No drains. Pathologic specimen, ga llbladder. Sponge and instrument counts correct. Estimated blood loss 30 mL. [id number]/[facility] #: [id number]
== END 2017-04-12 17:46 | disposition home or self-care (01) ==
LOC: OR 11:22
PROVIDERS: ATTEND Surgery
DX: K80.12 Calculus of gallbladder with acute and chronic cholecystitis without obstruction (principal); F17.210 Nicotine dependence, cigarettes, uncomplicated
CPT/HCPCS: 81025; 88304; A9270-GY; J0330; J1100; J1170; J1240; J1885; J2250; J2405; J2704; J3010

== ENCOUNTER 2017-09-09 11:21 | Emergency (ER) | payer SELFPAY ==
[2017-09-09 12:17] VITALS: BP 119/55
[2017-09-09] MEDS ORDERED: Ketorolac INJ* 30 MG/ML 1 ML VIAL IM ONE (12:25)
--- NOTE | 2017-09-09 12:30 | UC ---
General HPI - HPI Summary HPI Summary: Patient presents with an unremarkable past medical history. She report sudden onset generalized fatigue or malaise, headache, with generalized body aches, chest discomfort and back pain. She reports cough, chest congestion, sore throat and ear pain. She states she felt well yesterday. Denies abdominal pain, dysuria, nausea, vomiting or diarrhea. She states she works at [employer] and people come and go all the time who have been ill. - History of Current Complaint Hx Obtained From: Patient Hx Last Menstrual Period: 08/30/17 Onset/Duration: Sudden Onset, Lasting Days Timing: Constant Onset Severity: Mild Current Severity: Severe Associated Signs & Symptoms: Positive: Back Pain, Chest Pain, Headache, Weakness <Jeannine Prieto - Last Filed: 09/09/17 13:09> <Katherine Sotelo - Last Filed: 09/09/17 14:41> - History of Current Complaint Chief Complaint: UCGeneralIllness Stated Complaint: COUGH CONGESTION BODYACHES Time Seen by Provider: 09/09/17 12:21 - Allergy/Home Medications Allergies/Adverse Reactions: Allergies Allergy/AdvReac Type Severity Reaction Status Date / Time Cefaclor [From Ceclor] Allergy Unknown UNK Verified 09/09/17 12:11 Penicillins Allergy Unknown UNK Verified 09/09/17 12:11 Sulfamethoxazole Allergy Unknown UNK Verified 09/09/17 12:11 w/Trimethoprim [From Bactrim] Amoxicillin [From Augmentin] Allergy Unknown Verified 09/09/17 12:11 Reaction Details Clavulanic Acid Allergy Unknown Verified 09/09/17 12:11 [From Augmentin] Reaction Details CILLINS Allergy Unknown Uncoded 09/09/17 12:11 Reaction Details Home Medications: Home Medications Oral Control 09/09/17 [History] PMH/Surg Hx/FS Hx/Imm Hx Previously Healthy: Yes Other History Of: Negative For: HIV, Hepatitis B, Hepatitis C, Anticoagulant Therapy - Surgical History Surgical History: Yes Surgery Procedure, Year, and Place: 2004. ear tubes as a child. choley - Family History Known Family History: Negative: Cardiac Disease, Hypertension - Social History Occupation: Employed Full-time Lives: Alone Alcohol Use: Rare Substance Use Type: None Smoking Status (MU): Current Every Day Smoker Type: Cigarettes Amount Used/How Often: 1/2 PPD, smoking for on and off for 10 years Length of Time of Smoking/Using Tobacco: 10 years Have You Smoked in the Last Year: Yes <Jeannine Prieto - Last Filed: 09/09/17 13:09> Review of Systems Constitutional: Fatigue Skin: Negative Eyes: Photophobia ENT: Sore Throat, Ear Ache, Nasal Discharge, Sinus Congestion Respiratory: Cough Cardiovascular: Negative Gastrointestinal: Negative Genitourinary: Negative Motor: Negative Neurovascular: Negative Musculoskeletal: Arthralgia, Myalgia Neurological: Headache Psychological: Negative Is Patient Immunocompromised?: No All Other Systems Reviewed And Are Negative: Yes <Jeannine Prieto - Last Filed: 09/09/17 13:09> Physical Exam Triage Information Reviewed: Yes Appearance: Ill-Appearing Vital Signs: Initial Vital Signs Temp 99.1 F 09/09/17 12:13 Pulse 94 09/09/17 12:13 Resp 16 09/09/17 12:13 BP 119/55 09/09/17 12:13 Pulse Ox 100 09/09/17 12:13 Vital Signs Reviewed: Yes Eye Exam: Normal ENT Exam: Normal Neck exam: Normal Neck: Positive: 1 Respiratory Exam: Normal Cardiovascular Exam: Normal Abdominal Exam: Normal Musculoskeletal Exam: Normal Neurological Exam: Normal Skin Exam: Normal <Jeannine Prieto - Last Filed: 09/09/17 13:09> Vital Signs: Initial Vital Signs Temp 99.1 F 09/09/17 12:13 Pulse 94 09/09/17 12:13 Resp 16 09/09/17 12:13 BP 119/55 09/09/17 12:13 Pulse Ox 100 09/09/17 12:13 <Katherine Sotelo - Last Filed: 09/09/17 14:41> Course/Dx - Course Course Of Treatment: Patient presents with an unremarkable past medical history. Presents today with sudden onset generalized discomfort, fatigue and malaise. Infulenz A/B was negative. Clincial findings were benign. VS normal and patient was afebrile. She presents with influenza like illness and I recommend advil/tylenol every 4-6 hours, increase fluids, rest and if symtpoms worsned to follow up for re-evaluation. She was taken out of work for 2 days. She verbalzied understanding and was in agreement with the discharge plan. - Differential Dx - Multi-Symptom Differential Diagnoses: Other - uri Provider Diagnoses: uri <Jeannine Prieto - Last Filed: 09/09/17 13:09> Discharge <Jeannine Prieto - Last Filed: 09/09/17 13:09> <Katherine Sotelo - Last Filed: 09/09/17 14:41> - Discharge Plan Condition: Stable Disposition: HOME Patient Education Materials: Viral Syndrome (ED) Forms: *Work Release Referrals: No Primary Care Phys,NOPCP [Primary Care Provider] - Attestation Statement User Type: Provider - I was available for consult. This patient was seen by the JEAN PAUL. The patient was not presented to, seen by, or examined by me. -Heavenly <Katherine Sotelo - Last Filed: 09/09/17 14:41>
== END 2017-09-09 13:09 | disposition home or self-care (01) ==
LOC: UCEAST 11:21
DX: J06.9 Acute upper respiratory infection, unspecified (principal); Z88.3 Allergy status to other anti-infective agents; Z88.0 Allergy status to penicillin; F17.210 Nicotine dependence, cigarettes, uncomplicated
CPT/HCPCS: 87502; 96372; 99211; G0463; J1885

== ENCOUNTER 2017-11-30 13:14 | Emergency (ER) | payer SELFPAY ==
[2017-11-30 14:24] VITALS: BP 120/76
--- NOTE | 2017-11-30 14:53 | UC ---
Abdominal Pain Female HPI - HPI Summary HPI Summary: Patient states she started with cold like symptoms and headache in her temples that radiate backward through her scalp along with diarrhea for the past 5 days. c/o stuffy nose which is not consistent, denies cough or postnasal drip. She denies fever or diarrhea, does have nausea but has been drinking fluids and yesterday the diarrhea stopped. Continues with headaches /10, denies aura, states darkness and sleep help with the headache which is pressure-like. It is not similar to the migraines she has had in the past, except when they radiate backward. She states she has been smoking more since she has not been working these days, up to half ppd. Meds: BCP's. - History of Current Complaint Chief Complaint: UCHeadache Stated Complaint: HEADACHE,BODYACHES Time Seen by Provider: 11/30/17 14:42 Hx Obtained From: Patient Hx Last Menstrual Period: 11/15/17 ?: No Onset/Duration: Sudden Onset, Lasting Days Timing: Constant Severity Initially: Moderate Severity Currently: Moderate Pain Intensity: 4 Location: Diffuse Character: Colicy Aggravating Factor(s): Food Alleviating Factor(s): Bowel Movement Associated Signs and Symptoms: Positive: Nausea Allergies/Adverse Reactions: Allergies Allergy/AdvReac Type Severity Reaction Status Date / Time MS Penicillins [Penicillins] Allergy Unknown UNK Verified 11/30/17 14:15 MS Sulfamethoxazole Allergy Unknown UNK Verified 11/30/17 14:15 w/Trimethoprim [From Bactrim] cefaclor Allergy Rash Verified 11/30/17 15:09 MS Amoxicillin Allergy Unknown Verified 11/30/17 14:15 [From Augmentin] Reaction Details MS Clavulanic Acid Allergy Unknown Verified 11/30/17 14:15 [From Augmentin] Reaction Details Penicillins Allergy Unknown Verified 11/30/17 15:10 Reaction Details CILLINS Allergy Unknown Uncoded 11/30/17 14:15 Reaction Details Home Medications: Home Medications Norethindrone AC-Eth Estradiol [Microgestin 10/06 1-20 mg-Mcg] 1 tab PO DAILY [History Confirmed 11/30/17] PMH/Surg Hx/FS Hx/Imm Hx Previously Healthy: Yes Other History Of: Negative For: HIV, Hepatitis B, Hepatitis C, Anticoagulant Therapy - Surgical History Surgical History: Yes Surgery Procedure, Year, and Place: 2004. ear tubes as a child. choley - Family History Known Family History: Negative: Cardiac Disease, Hypertension - Social History Alcohol Use: Rare Substance Use Type: None Smoking Status (MU): Current Every Day Smoker Type: Cigarettes Amount Used/How Often: 5 to 1/2 PPD Length of Time of Smoking/Using Tobacco: 10 years Have You Smoked in the Last Year: Yes Review of Systems ENT: Nasal Discharge Musculoskeletal: Myalgia Neurological: Headache All Other Systems Reviewed And Are Negative: Yes Physical Exam Triage Information Reviewed: Yes Appearance: Well-Nourished, Pain Distress Vital Signs: Initial Vital Signs Temp 99 F 11/30/17 14:17 Pulse 101 11/30/17 14:17 Resp 16 11/30/17 14:17 BP 120/76 11/30/17 14:17 Pulse Ox 99 11/30/17 14:17 Vital Signs Reviewed: Yes Eyes: Positive: Conjunctiva Clear ENT: Positive: Hearing grossly normal, Pharynx normal, TMs normal, Uvula midline , Other - temporal tenderness to palpation Dental Exam: Normal Neck: Positive: Supple, Nontender, No Lymphadenopathy Respiratory: Positive: Chest non-tender, Lungs clear, Normal breath sounds, No respiratory distress Cardiovascular: Positive: RRR, No Murmur, Pulses Normal, Brisk Capillary Refill Abdomen Description: Positive: Nontender, No Organomegaly, Soft Bowel Sounds: Positive: Present Musculoskeletal Exam: Normal Neurological: Positive: Alert, Muscle Tone Normal Skin Exam: Normal Abd Pain Female Course/Dx - Course Course Of Treatment: Patient evaluated, physical exam wnl, neurologic exam normal. Advised to continue oral hydration, avoid caffeine and tobacco, BRAT, rest - Differential Dx/Diagnosis Provider Diagnoses: Viral gastroenteritis Discharge - Discharge Plan Condition: Stable Disposition: HOME Patient Education Materials: Dehydration (ED), Gastroenteritis (ED) Forms: *Work Release Referrals: No Primary Care Phys,NOPCP [Primary Care Provider] -
== END 2017-11-30 15:23 | disposition home or self-care (01) ==
LOC: UCEAST 13:14
DX: A08.4 Viral intestinal infection, unspecified (principal); Z88.3 Allergy status to other anti-infective agents; Z88.0 Allergy status to penicillin; Z88.2 Allergy status to sulfonamides; Z88.8 Allergy status to other drugs, medicaments and biological substances
CPT/HCPCS: 99211; G0463

== ENCOUNTER 2018-02-15 07:51 | Emergency (ER) | payer SELFPAY ==
[2018-02-15 08:03] VITALS: BP 126/72
--- NOTE | 2018-02-15 08:16 | UC ---
Complaint Female HPI - HPI Summary HPI Summary: Patient presents with 5 days of urinary frequency, urgency and burning. Getting progressively worse. States she has some slight redness at her urethral meatus now. Is not concerned about STDs. Denies any vaginal discharge. No fever, nausea, low back pain. States she gets UTIs about 2 times per year. - History Of Current Complaint Chief Complaint: UCGU Stated Complaint: URINARY ISSUES Time Seen by Provider: 02/15/18 08:05 Hx Obtained From: Patient Hx Last Menstrual Period: 3 months- due at end of February Onset/Duration: Gradual Onset, Lasting Days, Still Present Timing: Constant Severity Initially: Mild Severity Currently: Moderate Pain Intensity: 2 Pain Scale Used: 0-10 Numeric Character: Burning Aggravating Factor(s): Urination Alleviating Factor(s): Nothing Associated Signs And Symptoms: Negative: Fever, Back Pain, Vaginal Bleeding/ Discharge, Vaginal Discharge, Nausea - Allergies/Home Medications Allergies/Adverse Reactions: Allergies Allergy/AdvReac Type Severity Reaction Status Date / Time amoxicillin Allergy Unknown Verified 02/15/18 08:04 Reaction Details cefaclor Allergy Rash Verified 02/15/18 08:04 clavulanic acid Allergy Unknown Verified 02/15/18 08:04 Reaction Details Penicillins Allergy Unknown Verified 02/15/18 08:04 Reaction Details sulfamethoxazole Allergy Unknown Verified 02/15/18 08:04 [From Bactrim] Reaction Details trimethoprim [From Bactrim] Allergy Unknown Verified 02/15/18 08:04 Reaction Details CILLINS Allergy Unknown Uncoded 02/15/18 08:04 Reaction Details PMH/Surg Hx/FS Hx/Imm Hx Previously Healthy: Yes Other History Of: Negative For: HIV, Hepatitis B, Hepatitis C, Anticoagulant Therapy - Surgical History Surgical History: Yes Surgery Procedure, Year, and Place: 2004. ear tubes as a child. choley - Family History Known Family History: Negative: Cardiac Disease, Hypertension - Social History Alcohol Use: Rare Substance Use Type: None Smoking Status (MU): Current Every Day Smoker Type: Cigarettes Amount Used/How Often: 5 to 1/2 PPD Length of Time of Smoking/Using Tobacco: 10 years Have You Smoked in the Last Year: Yes - Immunization History Most Recent Tetanus Shot: UNK Review of Systems Constitutional: Negative Respiratory: Negative Cardiovascular: Negative Gastrointestinal: Negative Genitourinary: Dysuria, Frequency, Urgency All Other Systems Reviewed And Are Negative: Yes Physical Exam Triage Information Reviewed: Yes Appearance: Well-Appearing, No Pain Distress, Well-Nourished Vital Signs: Initial Vital Signs Temp 98.2 F 02/15/18 07:58 Pulse 88 02/15/18 07:58 Resp 14 02/15/18 07:58 BP 126/72 02/15/18 07:58 Pulse Ox 99 02/15/18 07:58 Vital Signs Reviewed: Yes Eyes: Positive: Conjunctiva Clear ENT: Positive: Hearing grossly normal Neck: Positive: Supple Respiratory: Positive: No respiratory distress, No accessory muscle use Cardiovascular: Positive: Pulses Normal Abdomen Description: Positive: Soft, Other: - MILDLY TENDER SUPRAPUBIC. Negative: CVA Tenderness (R), CVA Tenderness (L), Distended, Guarding Musculoskeletal: Positive: No Edema Neurological: Positive: Alert Psychological: Positive: Age Appropriate Behavior Skin: Negative: rashes Diagnostics - Laboratory Diagnostic Studies Completed/Ordered: URINE DIP SP. GR. 1.030, 3+ PROTEIN, 3+ BLOOD, 3+ LEUKS Complaint Female Dx - Differential Dx/Diagnosis Provider Diagnoses: UTI Discharge - Sign-Out/Discharge Documenting (check all that apply): Discharge/Admit/Transfer - Discharge Plan Condition: Stable Disposition: HOME Prescriptions: Ciprofloxacin TAB* [Cipro 500 MG TAB*] 500 mg PO BID #14 tab Phenazopyridine TAB* [Pyridium TAB*] 200 mg PO TID #6 tab Patient Education Materials: Urinary Tract Infection in Women (ED) Forms: *Work Release [facility]: [facility] [Outside] - If Needed - Billing Disposition and Condition Condition: STABLE Disposition: HOME
== END 2018-02-15 08:27 | disposition home or self-care (01) ==
LOC: UCEAST 07:51
DX: N39.0 Urinary tract infection, site not specified (principal); Z87.440 Personal history of urinary (tract) infections; Z88.3 Allergy status to other anti-infective agents; Z88.0 Allergy status to penicillin; Z88.2 Allergy status to sulfonamides
CPT/HCPCS: 81003; 87077; 87086; 87186; 99212; G0463

== ENCOUNTER 2018-03-30 17:09 | Emergency (ER) | payer SELFPAY ==
[2018-03-30 17:34] VITALS: BP 124/82
--- NOTE | 2018-03-30 17:49 | UC ---
Dental HPI - HPI Summary HPI Summary: This patient is a 32 year old F presenting to [facility] accompanied by a friend with a chief complaint of dental pain to a left upper tooth for the past couple days. Pain is 10/10 in severity. She states she woke this morning with significant swelling to the left face. - History of Current Complaint Chief Complaint: UCDentalProblem Stated Complaint: TOOTHACHE Time Seen by Provider: 03/30/18 17:46 Hx Obtained From: Patient Hx Last Menstrual Period: 11/15/17 Onset/Duration: Lasting Days Severity: Severe Pain Intensity: 10 Pain Scale Used: 0-10 Numeric Alleviating Factor(s): Nothing - Allergies/Home Medications Allergies/Adverse Reactions: Allergies Allergy/AdvReac Type Severity Reaction Status Date / Time amoxicillin Allergy Unknown Verified 03/30/18 17:34 Reaction Details cefaclor Allergy Rash Verified 03/30/18 17:34 clavulanic acid Allergy Unknown Verified 03/30/18 17:34 Reaction Details Penicillins Allergy Unknown Verified 03/30/18 17:34 Reaction Details sulfamethoxazole Allergy Unknown Verified 03/30/18 17:34 [From Bactrim] Reaction Details trimethoprim [From Bactrim] Allergy Unknown Verified 03/30/18 17:34 Reaction Details CILLINS Allergy Unknown Uncoded 02/15/18 08:04 Reaction Details PMH/Surg Hx/FS Hx/Imm Hx Previously Healthy: Yes Other History Of: Negative For: HIV, Hepatitis B, Hepatitis C, Anticoagulant Therapy - Surgical History Surgical History: Yes Surgery Procedure, Year, and Place: 2004. ear tubes as a child. choley - Family History Known Family History: Negative: Cardiac Disease, Hypertension - Social History Alcohol Use: Rare Substance Use Type: None Smoking Status (MU): Current Every Day Smoker Type: Cigarettes Amount Used/How Often: 5 to 1/2 PPD Length of Time of Smoking/Using Tobacco: 10 years Have You Smoked in the Last Year: Yes - Immunization History Most Recent Tetanus Shot: UNK Review of Systems Constitutional: Negative ENT: Dental Pain Musculoskeletal: Edema - facial left All Other Systems Reviewed And Are Negative: Yes Physical Exam - Summary Physical Exam Summary: General: well-appearing, no pain distress Skin: warm, color reflects adequate perfusion, dry Head: normal Eyes: EOMI, JESSICA ENT: Left upper molar with severe decay and gingival swelling, left cheek swelling, uvula is midline, oropharynx is open Neck: supple, nontender Respiratory: CTA, breath sounds present Cardiovascular: RRR Abdomen: soft, nontender Bowel: present Musculoskeletal: normal, strength/ROM intact Neurological: sensory/motor intact, A&O x3 Psychological: affect/mood appropriate Triage Information Reviewed: Yes Vital Signs: Initial Vital Signs Temp 98 F 03/30/18 17:30 Pulse 97 03/30/18 17:30 Resp 18 03/30/18 17:30 BP 124/82 03/30/18 17:30 Pulse Ox 98 03/30/18 17:30 Vital Signs Reviewed: Yes Dental Complaint Course/Dx - Course Course Of Treatment: F/U DENTIST; RECHECK SOONER IF WORSE. - Differential Dx/Diagnosis Provider Diagnoses: DENTAL ABSCESS Discharge - Sign-Out/Discharge Documenting (check all that apply): Patient Departure - Discharge Plan Condition: Stable Disposition: HOME Prescriptions: Clindamycin Cap(NF) [Clindamycin Cap 300 mg Cap(NF)] 300 mg PO Q6H #40 cap HYDROcodone/ACETAMIN 5-325 MG* [Williams 5-325 TAB*] 1 tab PO Q4H PRN #20 tab MDD 6 PRN Reason: Pain Patient Education Materials: Dental Abscess (ED) Referrals: [facility] [Outside] Additional Instructions: FOLLOW UP WITH YOUR DENTIST. GET RECHECKED FOR ANY WORSENING OF YOUR CONDITION OR QUESTIONS OR CONCERNS. - Billing Disposition and Condition Condition: STABLE Disposition: Home
== END 2018-03-30 18:04 | disposition home or self-care (01) ==
LOC: UCEAST 17:09
DX: K04.7 Periapical abscess without sinus (principal); Z88.1 Allergy status to other antibiotic agents; Z88.0 Allergy status to penicillin; Z88.2 Allergy status to sulfonamides; F17.210 Nicotine dependence, cigarettes, uncomplicated
CPT/HCPCS: 99212; G0463

== ENCOUNTER 2018-04-29 12:23 | Emergency (ER) | payer SELFPAY ==
[2018-04-29 13:50] VITALS: BP 107/78
--- NOTE | 2018-04-29 14:26 | ED ---
GI/ HPI - HPI Summary HPI Summary: C/O INC URINARY FREQ AND BURNING WITH URINATION X 4 DAYS. DENIES FEVER, N/V/D, ABDO PAIN, BLOOD IN URINE, BACK PAIN, VAG SX. HX OF FREQUENT UTI. MED HX = NONE. ABDO/PEL SURGICAL HX IS C SECTION X 1, BARRY. - History of Current Complaint Chief Complaint: UCGU Stated Complaint: URINARY ISSUE Hx Obtained From: Patient Hx Last Menstrual Period: 3 months ago, pt is on B/C that gives her a menses Q 3 months Onset/Duration: Started Days Ago Timing: Constant Severity: Mild Current Severity: None Pain Intensity: 2 Pain Characteristics: Burning Associated Signs and Symptoms: Positive: Negative Aggravating Factor(s): Nothing Alleviating Factor(s): Nothing - Allergy/Home Medications Allergies/Adverse Reactions: Allergies Allergy/AdvReac Type Severity Reaction Status Date / Time amoxicillin Allergy Unknown Verified 04/29/18 13:52 Reaction Details cefaclor Allergy Rash Verified 04/29/18 13:52 clavulanic acid Allergy Unknown Verified 04/29/18 13:52 Reaction Details Penicillins Allergy Unknown Verified 04/29/18 13:52 Reaction Details sulfamethoxazole Allergy Unknown Verified 04/29/18 13:52 [From Bactrim] Reaction Details trimethoprim [From Bactrim] Allergy Unknown Verified 04/29/18 13:52 Reaction Details CILLINS Allergy Unknown Uncoded 04/29/18 13:52 Reaction Details Home Medications: Home Medications Levonorgestrel-Ethin Estradiol [Aubra] 1 tab PO DAILY 04/29/18 [History Confirmed 04/29/18] PMH/Surg Hx/FS Hx/Imm Hx Endocrine/Hematology History: Denies: Hx Anticoagulant Therapy, Hx Diabetes, Hx Thyroid Disease Cardiovascular History: Denies: Hx Congestive Heart Failure, Hx Deep Vein Thrombosis, Hx Hypertension , Hx Myocardial Infarction, Hx Pacemaker/ICD Respiratory History: Reports: Other Respiratory Problems/Disorders - URI,sinus infection and viral infection 6 months ago - healed Denies: Hx Asthma, Hx Chronic Obstructive Pulmonary Disease (COPD), Hx Lung Cancer, Hx Pneumonia, Hx Pulmonary Embolism GI History: Reports: Other GI Disorders - choleycystitis Denies: Hx Gall Bladder Disease, Hx Gastrointestinal Bleed, Hx Ulcer, Hx Urosepsis History: Reports: Other Problems/Disorders - urinary tract infection. last one 5-6months ago Denies: Hx Kidney Stones, Hx Renal Disease Musculoskeletal History: Reports: Other Musculoskeletal History - right side of back muscle damage Sensory History: Denies: Hx Cataracts, Hx Contacts or Glasses, Hx Hearing Aid Opthamlomology History: Denies: Hx Cataracts, Hx Contacts or Glasses Neurological History: Reports: Other Neuro Impairments/Disorders - Had shingles in past- none now Denies: Hx Dementia, Hx Migraine, Hx Seizures, Hx Transient Ischemic Attacks (TIA) Psychiatric History: Denies: Hx Anxiety, Hx Depression, Hx Schizophrenia, Hx Bipolar Disorder - Cancer History Hx Chemotherapy: No - Surgical History Surgery Procedure, Year, and Place: 2004. ear tubes as a child. choley Hx Anesthesia Reactions: No Infectious Disease History: No Infectious Disease History: Reports: Hx Shingles Denies: Hx Clostridium Difficile, Hx Hepatitis, Hx Human Immunodeficiency Virus (HIV), Hx Tuberculosis, Hx Known/Suspected VRE, Hx Known/Suspected VRSA, History Other Infectious Disease, Traveled Outside the [place] in Last 30 Days - Family History Known Family History: Negative: Cardiac Disease, Hypertension - Social History Alcohol Use: Rare Substance Use Type: Reports: None Smoking Status (MU): Heavy Every Day Tobacco Smoker Type: Cigarettes Amount Used/How Often: 5 to 1/2 PPD Length of Time of Smoking/Using Tobacco: since age 19 Have You Smoked in the Last Year: Yes Review of Systems Constitutional: Negative Eyes: Negative ENT: Negative Cardiovascular: Negative Respiratory: Negative Gastrointestinal: Negative Positive: burning, frequency Musculoskeletal: Negative Skin: Negative Neurological: Negative Psychological: Normal All Other Systems Reviewed And Are Negative: Yes Physical Exam Triage Information Reviewed: Yes Vital Signs On Initial Exam: Initial Vitals Temp Pulse Resp BP Pulse Ox 98.2 F 95 16 107/78 100 04/29/18 13:44 04/29/18 13:44 04/29/18 13:44 04/29/18 13:44 04/29/18 13:44 Vital Signs Reviewed: Yes Appearance: Positive: Well-Appearing Skin: Positive: Warm Head/Face: Positive: Normal Head/Face Inspection Eyes: Positive: Normal Neck: Positive: Supple Respiratory/Lung Sounds: Positive: Clear to Auscultation Cardiovascular: Positive: Normal Abdomen Description: Positive: Nontender, Soft. Negative: CVA Tenderness (R), CVA Tenderness (L) Musculoskeletal: Positive: Normal Neurological: Positive: Normal Psychiatric: Positive: Normal AVPU Assessment: Alert - [place] Coma Scale Best Eye Response: 4 - Spontaneous Best Motor Response: 6 - Obeys Commands Best Verbal Response: 5 - Oriented Coma Scale Total: 15 Diagnostics - Vital Signs Vital Signs Temp Pulse Resp BP Pulse Ox 04/29/18 13:44 98.2 F 95 16 107/78 100 - Laboratory Lab Statement: Any lab studies that have been ordered have been reviewed, and results considered in the medical decision making process. GIGU Course/Dx - Course Course Of Treatment: C/O INC URINARY FREQ AND BURNING WITH URINATION X 4 DAYS. DENIES FEVER, N/V/D, ABDO PAIN, BLOOD IN URINE, BACK PAIN, VAG SX. HX OF FREQUENT UTI. MED HX = NONE. ABDO/PEL SURGICAL HX IS C SECTION X 1, BARRY. UIT SX. RX FOR CIPRO AND AXO. PT ADVISED OF POTENTIAL FOR WEAKENING TENDONS FROM CIPRO. - Diagnoses Provider Diagnoses: UTI (urinary tract infection) Discharge - Sign-Out/Discharge Documenting (check all that apply): Patient Departure - Discharge Plan Condition: Stable Disposition: HOME Patient Education Materials: Phenazopyridine (By mouth), Urinary Tract Infection in Women (DC) Referrals: No Primary Care Phys,NOPCP [Primary Care Provider] - Additional Instructions: TAKE ANTIBIOTICS DIRECTED. CAUTION WITH SPORTS WHILE TAKING CIPRO IT MAY WEAKEN TENDONS. RETURN FOR ANY NEW OR WORSENING SYMPTOMS. - Billing Disposition and Condition Condition: STABLE Disposition: Home
== END 2018-04-29 14:40 | disposition home or self-care (01) ==
LOC: UCEAST 12:23
DX: N39.0 Urinary tract infection, site not specified (principal); Z88.1 Allergy status to other antibiotic agents; Z88.0 Allergy status to penicillin; Z88.2 Allergy status to sulfonamides; F17.210 Nicotine dependence, cigarettes, uncomplicated
CPT/HCPCS: 81003; 87077; 87086; 87186; 99212; G0463

== ENCOUNTER 2018-06-12 10:57 | Emergency (ER) | payer SELFPAY ==
[2018-06-12 12:02] VITALS: BP 111/67
--- NOTE | 2018-06-12 12:04 | UC ---
Respiratory Complaint HPI - HPI Summary HPI Summary: 32 yo female presents with productive cough. She tells me that about 1 week ago her symptoms started as a dry cough. Since that time she has developed a productive cough, sinus congestion, headache, and fatigue. She has not been taking anything OTC for her symptoms. Has felt hot/cold at times, but has not taken her temperature. She is still smoking daily. Denies sore throat, SOB, chest pain, abdominal pain, n/v. - History of Current Complaint Chief Complaint: UCRespiratory Stated Complaint: COUGH Time Seen by Provider: 06/12/18 12:03 Hx Obtained From: Patient Hx Last Menstrual Period: 2 mom ago per bcp Onset/Duration: Gradual Onset Timing: Constant Severity Initially: Mild Severity Currently: Moderate Pain Intensity: 6 Pain Scale Used: 0-10 Numeric Character: Cough: Productive - Allergies/Home Medications Allergies/Adverse Reactions: Allergies Allergy/AdvReac Type Severity Reaction Status Date / Time amoxicillin Allergy Unknown Verified 06/12/18 12:02 Reaction Details cefaclor Allergy Rash Verified 06/12/18 12:02 clavulanic acid Allergy Unknown Verified 06/12/18 12:02 Reaction Details Penicillins Allergy Unknown Verified 06/12/18 12:02 Reaction Details sulfamethoxazole Allergy Unknown Verified 06/12/18 12:02 [From Bactrim] Reaction Details trimethoprim [From Bactrim] Allergy Unknown Verified 06/12/18 12:02 Reaction Details CILLINS Allergy Unknown Uncoded 06/12/18 12:02 Reaction Details PMH/Surg Hx/FS Hx/Imm Hx - Additional Past Medical History Additional PMH: None Other History Of: Negative For: HIV, Hepatitis B, Hepatitis C, Anticoagulant Therapy - Surgical History Surgical History: Yes Surgery Procedure, Year, and Place: 2004. ear tubes as a child. choley - Family History Known Family History: Negative: Cardiac Disease, Hypertension - Social History Occupation: Unemployed Lives: With Family Alcohol Use: Rare Substance Use Type: None Smoking Status (MU): Light Every Day Tobacco Smoker Type: Cigarettes Amount Used/How Often: 5 to 1/2 PPD Length of Time of Smoking/Using Tobacco: since age 19 Have You Smoked in the Last Year: Yes - Immunization History Most Recent Tetanus Shot: UNK Review of Systems Constitutional: Fatigue Skin: Negative Eyes: Negative ENT: Sinus Congestion Respiratory: Cough Cardiovascular: Negative Gastrointestinal: Negative Neurovascular: Negative Neurological: Negative Psychological: Negative All Other Systems Reviewed And Are Negative: Yes Physical Exam - Summary Physical Exam Summary: GENERAL: NAD. WDWN. Mildly ill appearing SKIN: No rashes, sores, lesions, or open wounds. HEENT: Head: AT/NC Eyes: Conjunctiva clear without inflammation or discharge. Ears: Hearing grossly normal. TMs intact, no bulging, erythema, or edema. Nose: Nasal mucosa pink and moist. NTTP maxillary and frontal sinus. Throat: Posterior oropharynx without exudates, erythema, or tonsillar enlargement. Uvula midline. NECK: Supple. Nontender. No lymphadenopathy. CHEST: Mild wheezing throughout. No r/r. No accessory muscle use. Breathing comfortably and in no distress. CV: RRR. Without m/r/g. Pulses intact. Cap refill <2seconds NEURO: Alert. PSYCH: Age appropriate behavior. Triage Information Reviewed: Yes Vital Signs: Initial Vital Signs Temp 96.8 F 06/12/18 11:57 Pulse 107 06/12/18 11:57 Resp 18 06/12/18 11:57 BP 111/67 06/12/18 11:57 Pulse Ox 98 06/12/18 11:57 Vital Signs Reviewed: Yes Diagnostic Evaluation - Laboratory O2 Sat by Pulse Oximetry: 98 Respiratory Course/Dx - Course Course Of Treatment: Bronchitis - Differential Dx/Diagnosis Provider Diagnoses: Bronchitis Discharge - Sign-Out/Discharge Documenting (check all that apply): Patient Departure All imaging exams completed and their final reports reviewed: No Studies - Discharge Plan Condition: Stable Disposition: HOME Prescriptions: DOXYcycline CAP(*) [DOXYcycline 100MG CAP(*)] 100 mg PO BID #20 cap Patient Education Materials: Acute Bronchitis (ED) Referrals: No Primary Care Phys,NOPCP [Primary Care Provider] - Additional Instructions: If you develop a fever, shortness of breath, chest pain, new or worsening symptoms - please call your PCP or go to the ED. - Billing Disposition and Condition Condition: STABLE Disposition: Home
== END 2018-06-12 12:20 | disposition home or self-care (01) ==
LOC: UCEAST 10:57
DX: J40 Bronchitis, not specified as acute or chronic (principal); Z88.1 Allergy status to other antibiotic agents; Z88.0 Allergy status to penicillin; Z88.2 Allergy status to sulfonamides; F17.210 Nicotine dependence, cigarettes, uncomplicated
CPT/HCPCS: 99212; G0463

== ENCOUNTER 2019-04-15 08:39 | Emergency (ER) | payer SELFPAY ==
[2019-04-15 08:52] VITALS: BP 115/68
--- NOTE | 2019-04-15 09:15 | UC ---
Dental HPI - HPI Summary HPI Summary: Pt presents to with left upper jaw dental pain. Pt states has a history of cavities, broken tooth. Pt states doesn't have money to go to dentist now - states has had infection before, responsive to clindamycin. Pt took APAP without improvement last night - last dose 5am. No fever, chills. + pain radiates to left ear. No difficulty swallowing. No intraoral edema. Pts medications reviewed this visit - History of Current Complaint Chief Complaint: UCDentalProblem Stated Complaint: TOOTH PAIN Time Seen by Provider: 04/15/19 08:54 Hx Obtained From: Patient Hx Last Menstrual Period: 03/15/19 Severity: Severe Pain Intensity: 10 Pain Scale Used: 0-10 Numeric - Allergies/Home Medications Allergies/Adverse Reactions: Allergies Allergy/AdvReac Type Severity Reaction Status Date / Time amoxicillin Allergy Unknown Verified 06/12/18 12:02 Reaction Details cefaclor Allergy Rash Verified 06/12/18 12:02 clavulanic acid Allergy Unknown Verified 06/12/18 12:02 Reaction Details Penicillins Allergy Unknown Verified 06/12/18 12:02 Reaction Details sulfamethoxazole Allergy Unknown Verified 06/12/18 12:02 [From Bactrim] Reaction Details trimethoprim [From Bactrim] Allergy Unknown Verified 06/12/18 12:02 Reaction Details CILLINS Allergy Unknown Uncoded 06/12/18 12:02 Reaction Details PMH/Surg Hx/FS Hx/Imm Hx Previously Healthy: Yes Other History Of: Negative For: HIV, Hepatitis B, Hepatitis C, Anticoagulant Therapy - Surgical History Surgical History: Yes Surgery Procedure, Year, and Place: 2004. ear tubes as a child. choley - Family History Known Family History: Positive: Non-Contributory Negative: Cardiac Disease, Hypertension - Social History Occupation: Employed Full-time Lives: With Family Alcohol Use: Rare Substance Use Type: None Smoking Status (MU): Light Every Day Tobacco Smoker Type: Cigarettes Amount Used/How Often: 5 to 1/2 PPD Length of Time of Smoking/Using Tobacco: since age 19 Have You Smoked in the Last Year: Yes - Immunization History Most Recent Tetanus Shot: UNK Review of Systems All Other Systems Reviewed And Are Negative: Yes Constitutional: Positive: Negative Skin: Positive: Negative ENT: Positive: Dental Pain Respiratory: Positive: Negative Physical Exam - Summary Physical Exam Summary: Vital Signs Reviewed: Yes A+Ox3, mild discomfort - holding left cheek Eyes: Conjunctiva Clear, JESSICA. EOM intact and full ENT: Hearing grossly normal TM x 2 clear, mmoist, uvula midline, no exudate, no erythema dental: Pt with multiple dental caries #13-15 with larger cavities, +TTP # 13 broken at gumline No fluctuance, drainage + TTP Neck: Positive: Supple Respiratory: Positive: No respiratory distress, No accessory muscle use + CTA throughout no w/r Musculoskeletal Exam: [place] x 4 without difficulty Strength Intact, ROM Intact Neurological: Positive: Alert, + sensation throughout Psychological: Positive: Normal Response To Family Skin: Positive: no rash, no ecchymosis Triage Information Reviewed: Yes Vital Signs: Initial Vital Signs Temp 97.9 F 04/15/19 08:48 Pulse 65 04/15/19 08:48 Resp 16 04/15/19 08:48 BP 115/68 04/15/19 08:48 Pulse Ox 100 04/15/19 08:48 Dental Complaint Course/Dx - Course Course Of Treatment: pt presents with progressive dental pain, upper left teeth. pt with poor dentition - unable to pay dentist today vss pt with ttp #13-15 #13 broken at gumline + TTP no fluctuance Will Rx clinamycin, motrin/apap, lidocaine dental list urgent Rx strict return precautions - Differential Dx/Diagnosis Provider Diagnosis: Pain, dental Discharge - Sign-Out/Discharge Documenting (check all that apply): Patient Departure All imaging exams completed and their final reports reviewed: No Studies - Discharge Plan Condition: Stable Disposition: HOME Prescriptions: Acetaminophen TAB* [Tylenol TAB*] 650 mg PO Q6H PRN #30 tab PRN Reason: Pain Clindamycin HCl 300 mg PO TID #30 capsule Lidocaine 2% VISCOUS* 10 ml TOPICAL Q4HR PRN #1 btl PRN Reason: dental pain Patient Education Materials: Toothache (ED) Forms: *Work Release Referrals: No Primary Care Phys,NOPCP [Primary Care Provider] - Additional Instructions: - Okay to alternate ibuprofen (Advil, Motrin) 600mg and Tylenol every 3 hours for pain. Take with food. Do NOT take for more than 4-5 days -Swish and spit with warm salt water 3-4 times a day -Take anitbiotics as prescribed until gone - okay to apply the medication directly to your tooth as prescribed - do not use more frequently than prescribed -Contact a clinic or go to the walk in clinic from the list provided to you today. If you develop swelling inside your mouth, difficulty with chewing or any other concerns it is recommended you go to the emergency department for further management - Billing Disposition and Condition Condition: STABLE Disposition: Home
== END 2019-04-15 09:19 | disposition home or self-care (01) ==
LOC: UCEAST 08:39
DX: K08.89 Other specified disorders of teeth and supporting structures (principal); F17.210 Nicotine dependence, cigarettes, uncomplicated; Z88.0 Allergy status to penicillin; Z88.2 Allergy status to sulfonamides

== ENCOUNTER 2019-04-23 18:43 | Emergency (ER) | payer SELFPAY ==
[2019-04-23 18:58] VITALS: BP 122/58
[2019-04-23] MEDS ORDERED: HYDROcodone/ACETAMIN 5-325 MG* 1 TAB PO ONE (21:26)
[2019-04-23] MEDS ORDERED: metroNIDAZOLE * 500 MG TABLET PO ONE (21:26)
--- NOTE | 2019-04-23 21:40 | UC ---
Dental HPI - HPI Summary HPI Summary: 33 yo female with left TMJ tenderness and dental abscess Hit in jaw with ball about a month ago hurts to open mouth left TMJ - History of Current Complaint Chief Complaint: UCDentalProblem Stated Complaint: DENTAL PAIN Time Seen by Provider: 04/23/19 20:19 Hx Obtained From: Patient Hx Last Menstrual Period: 03/16/19 Onset/Duration: Sudden Onset, Lasting Days Severity: Severe Pain Intensity: 10 Pain Scale Used: 0-10 Numeric Aggravating Factor(s): Chewing Alleviating Factor(s): Nothing Related History: Previous Dental Care on Same Tooth Dental: 1 - rotted to gum line 2 - abscess - Allergies/Home Medications Allergies/Adverse Reactions: Allergies Allergy/AdvReac Type Severity Reaction Status Date / Time amoxicillin Allergy Unknown Verified 04/23/19 18:58 Reaction Details cefaclor Allergy Rash Verified 04/23/19 18:58 clavulanic acid Allergy Unknown Verified 04/23/19 18:58 Reaction Details Penicillins Allergy Unknown Verified 04/23/19 18:58 Reaction Details sulfamethoxazole Allergy Unknown Verified 04/23/19 18:58 [From Bactrim] Reaction Details trimethoprim [From Bactrim] Allergy Unknown Verified 04/23/19 18:58 Reaction Details CILLINS Allergy Unknown Uncoded 04/23/19 18:58 Reaction Details Home Medications: Home Medications Acetaminophen TAB* [Tylenol TAB*] 1,500 mg PO Q6H PRN 04/23/19 [History] PMH/Surg Hx/FS Hx/Imm Hx Previously Healthy: Yes Other History Of: Negative For: HIV, Hepatitis B, Hepatitis C, Anticoagulant Therapy - Surgical History Surgical History: Yes Surgery Procedure, Year, and Place: 2004. ear tubes as a child. choley - Family History Known Family History: Positive: Non-Contributory Negative: Cardiac Disease, Hypertension - Social History Alcohol Use: Rare Substance Use Type: None Smoking Status (MU): Light Every Day Tobacco Smoker Type: Cigarettes Amount Used/How Often: 5 to 1/2 PPD Length of Time of Smoking/Using Tobacco: since age 19 Have You Smoked in the Last Year: Yes - Immunization History Most Recent Tetanus Shot: UNK Review of Systems All Other Systems Reviewed And Are Negative: Yes Constitutional: Positive: Negative Skin: Positive: Negative Eyes: Positive: Negative ENT: Positive: Dental Pain Respiratory: Positive: Negative Cardiovascular: Positive: Negative Gastrointestinal: Positive: Negative Genitourinary: Positive: Negative Motor: Positive: Negative Neurovascular: Positive: Negative Musculoskeletal: Positive: Arthralgia - left TMJ Neurological: Positive: Negative Psychological: Positive: Negative Physical Exam Triage Information Reviewed: Yes Appearance: Well-Nourished, Pain Distress Vital Signs: Initial Vital Signs Temp 97 F 04/23/19 18:52 Pulse 98 04/23/19 18:52 Resp 16 04/23/19 18:52 BP 122/58 04/23/19 18:52 Pulse Ox 100 04/23/19 18:52 Vital Signs Reviewed: Yes Eyes: Positive: Conjunctiva Clear ENT: Positive: Hearing grossly normal. Negative: Pharyngeal erythema, Nasal congestion, Nasal drainage, Trismus, Muffled voice, Dental tenderness Dental Exam: Other - abysmal dentition Dental: Positive: Other: - see image Neck: Positive: Supple, Nontender, No Lymphadenopathy Respiratory: Positive: Lungs clear, Normal breath sounds, No respiratory distress Cardiovascular: Positive: RRR Musculoskeletal: Positive: ROM Intact, No Edema Neurological: Positive: Alert Psychological Exam: Normal Skin Exam: Normal Images Head: 1 - tender 2 - slight tenderness Diagnostics - Radiology No standard instances Radiology Interpretation Completed By: ED Physician Summary of Radiographic Findings: no fx noted Dental Complaint Course/Dx - Differential Dx/Diagnosis Provider Diagnosis: Dental abscess, TMJ tenderness, left Discharge - Sign-Out/Discharge Documenting (check all that apply): Patient Departure All imaging exams completed and their final reports reviewed: No - Discharge Plan Condition: Stable Disposition: HOME Patient Education Materials: Dental Abscess (ED), Temporomandibular Disorder ( ED) Additional Instructions: ice right TMJ 4x day naproxen 500mg 1 twice daily add flagyl 500mg 4x day soft no chew diet you need to see a dentist first available appt to ER if not improved in 2 days norco 5 dispense 1one every 4 hours as needed for pain Opioid-containing medications can cause drowsiness and sedation. You t should not drive or operate machinery or similar activities while taking this medication. Opioids can also cause a positive drug screen, and can be habit- forming. You should follow the instructions exactly and not take any extra medication. Opioid medications should be stored in a secure manner to avoid diversion or theft. You should not drink alcohol while taking these medications - Billing Disposition and Condition Condition: STABLE Disposition: Home
--- NOTE | 2019-04-24 07:38 | UC ---
- Progress Note Progress Note: Chart reviewed Negative mandibular XR for fracture No change in plan Course/Dx - Diagnoses Provider Diagnoses: Dental abscess, TMJ tenderness, left Discharge - Sign-Out/Discharge Documenting (check all that apply): Post-Discharge Follow Up All imaging exams completed and their final reports reviewed: Yes - Discharge Plan Condition: Stable Disposition: HOME Patient Education Materials: Dental Abscess (ED), Temporomandibular Disorder ( ED) Referrals: No Primary Care Phys,NOPCP [Primary Care Provider] - Additional Instructions: ice right TMJ 4x day naproxen 500mg 1 twice daily add flagyl 500mg 4x day soft no chew diet you need to see a dentist first available appt to ER if not improved in 2 days norco 5 dispense 1one every 4 hours as needed for pain Opioid-containing medications can cause drowsiness and sedation. You t should not drive or operate machinery or similar activities while taking this medication. Opioids can also cause a positive drug screen, and can be habit- forming. You should follow the instructions exactly and not take any extra medication. Opioid medications should be stored in a secure manner to avoid diversion or theft. You should not drink alcohol while taking these medications - Billing Disposition and Condition Condition: STABLE Disposition: Home
== END 2019-04-23 21:40 | disposition home or self-care (01) ==
LOC: UCEAST 18:43
DX: K04.7 Periapical abscess without sinus (principal); M26.622 Arthralgia of left temporomandibular joint; F17.210 Nicotine dependence, cigarettes, uncomplicated; Z88.0 Allergy status to penicillin; Z88.2 Allergy status to sulfonamides
CPT/HCPCS: 70110; 99212; A9270-GY; G0463